=== PATIENT | female | born 2000 | race African-American/Black ===

== ENCOUNTER 2020-11-13 22:16 | Emergency (ER) | payer MEDICAID ==
[~2020-11-13] VITALS: Ht 167.6 cm; Wt 95.0 kg
[2020-11-13] MEDS ORDERED: KETOROLAC 30MG/ML VIAL IV STA (23:26)
[2020-11-13 23:45] LABS: CLARITY URINE CLOUDY (CLEAR); COLOR URINE RED (YELLOW); KETONES URINE NEGATIVE (NEGATIVE); LEUKOCYTE ESTERASE URINE 1+ (NEGATIVE); NITRITE URINE NEGATIVE (NEGATIVE); OCCULT BLOOD URINE 3+ (NEGATIVE); PROTEIN URINE 2+ (NEGATIVE); SPECIFIC GRAVITY URINE 1.008 (1.005-1.030); UROBILINOGEN URINE 0.2 E.U./dL (0.2-1.0)
[2020-11-13 23:47] LABS: BASOPHILS % 0.4 % (0.0-2.0); EOSINOPHILS % 1.1 % (0.0-5.0); HEMATOCRIT. 39.1 % (36.0-48.0); LYMPHOCYTES % 17.3 % (20.0-50.0); MEAN CORPUSCULAR HEMOGLOBIN 20.8 pg (28.0-32.0); MEAN CORPUSCULAR VOLUME 67.9 fL (81.0-99.0); MEAN PLATELET VOLUME 8.5 fl (7.4-10.4); MONOCYTES % 9.9 % (2.0-8.0); NEUTROPHILS % 71.3 % (40.0-76.0); PLATELET 297 x1000/uL (130-400); RED BLOOD CELL COUNT 5.75 mill/uL (4.2-5.4)
[2020-11-13 23:48] LABS: CHLORIDE 103 mEq/L (98-107)
[2020-11-13 23:52] LABS: PLATELET ESTIMATE NORMAL
[2020-11-13 23:53] LABS: ETHANOL BLOOD < 10 mg/dL
[2020-11-13 23:54] LABS: *AMPHETAMINES SCREEN URINE NEGATIVE (NEGATIVE); *BARBITURATES SCREEN URINE NEGATIVE (NEGATIVE); *BENZODIAZEPINES SCREEN URINE NEGATIVE (NEGATIVE); *COCAINE SCREEN URINE NEGATIVE (NEGATIVE)
[2020-11-13 23:55] LABS: CANNABINOID URINE SCREEN NEGATIVE (NEGATIVE); METHADONE URINE SCREEN NEGATIVE (NEGATIVE); OPIATES URINE SCREEN NEGATIVE (NEGATIVE); PHENCYCLIDINE URINE SCREEN NEGATIVE (NEGATIVE)
[2020-11-13 23:58] LABS: CREATINE KINASE 97 IU/L (26-192)
[2020-11-14] MEDS ORDERED: CEFTRIAXONE 1 G PREMIX 50 ML IV NR (00:15)
[2020-11-14] MEDS ORDERED: METOPROLOL TARTRATE 50MG TABLET PO NR (01:30)
[2020-11-14] MEDS ORDERED: METO-396 MT (02:11)
[2020-11-14 02:26] VITALS: BP 146/86
== END 2020-11-14 02:27 | disposition home or self-care (01) ==
LOC: ER 22:16
DX: I16.0 Hypertensive urgency (principal); R00.0 Tachycardia, unspecified; E66.01 Morbid (severe) obesity due to excess calories; Z68.33 Body mass index [BMI] 33.0-33.9, adult
CPT/HCPCS: 36415; 71045; 80053; 80305; 80320; 81003; 81025; 82550; 83605; 83880; 84145; 84484; 85025; 85379; 87040; 93970; 96374; 96375; 99285; J0696; J1885; Z7610; G0480

== ENCOUNTER 2020-12-19 20:52 | Emergency (ER) | payer MEDICAID ==
[~2020-12-19] VITALS: Ht 170.2 cm; Wt 109.0 kg
[~2020-12-19 20:52] MED LIST: METO-396 MT
[2020-12-19 21:28] VITALS: BP 137/87
[2020-12-19 22:15] LABS: CLARITY URINE CLOUDY (CLEAR); COLOR URINE YELLOW (YELLOW); KETONES URINE TRACE (NEGATIVE); LEUKOCYTE ESTERASE URINE 2+ (NEGATIVE); NITRITE URINE NEGATIVE (NEGATIVE); OCCULT BLOOD URINE NEGATIVE (NEGATIVE); PH URINE 6.5 (4.5-8.0); PROTEIN URINE NEGATIVE (NEGATIVE); SPECIFIC GRAVITY URINE 1.022 (1.005-1.030); UROBILINOGEN URINE 0.2 E.U./dL (0.2-1.0)
== END 2020-12-19 23:00 | disposition left against medical advice (07) ==
LOC: ER 20:52
DX: Z53.21 Procedure and treatment not carried out due to patient leaving prior to being seen by health care provider (principal)
CPT/HCPCS: 81003; 81025; 93005

== ENCOUNTER 2021-04-19 11:32 | Emergency (ER) | payer MEDICAID ==
[~2021-04-19] VITALS: Ht 167.6 cm; Wt 74.0 kg
[2021-04-19] MEDS ORDERED: LORAZEPAM 1MG TABLET PO ONE (12:15)
[2021-04-19 13:13] LABS: BASOPHILS % 0.4 % (0.0-2.0); EOSINOPHILS % 1.4 % (0.0-5.0); HEMATOCRIT. 35.9 % (36.0-48.0); HEMOGLOBIN. 11.2 g/dL (12.0-16.0); MEAN CORPUSCULAR HEMOGLOBIN 22.7 pg (28.0-32.0); MEAN CORPUSCULAR VOLUME 72.9 fL (81.0-99.0); MEAN PLATELET VOLUME 8.7 fl (7.4-10.4); MONOCYTES % 9.8 % (2.0-8.0); NEUTROPHILS % 62.4 % (40.0-76.0); PLATELET 222 x1000/uL (130-400); RED BLOOD CELL COUNT 4.93 mill/uL (4.2-5.4); RED CELL DISTRIBUTION WIDTH 17.2 % (11.6-14.6)
[2021-04-19 13:19] LABS: CHLORIDE 111 mEq/L (98-107)
[2021-04-19 13:35] LABS: HCG SCREEN NEGATIVE
[2021-04-19 15:17] VITALS: BP 128/82
== END 2021-04-19 15:41 | disposition home or self-care (01) ==
LOC: ER 11:32
DX: R06.00 Dyspnea, unspecified (principal); I49.9 Cardiac arrhythmia, unspecified
CPT/HCPCS: 36415; 71045; 80048; 84484; 84703; 85025; 85379; 93005; 99285

== ENCOUNTER 2022-04-18 15:40 | Emergency (ER) | payer MEDICAID ==
[~2022-04-18] VITALS: Ht 167.6 cm; Wt 107.0 kg
[2022-04-18] MEDS ORDERED: ACETAMINOPHEN 325MG TABLET PO ONE (20:15)
[2022-04-18] MEDS ORDERED: LORAZEPAM 0.5MG TABLET PO ONE (20:15)
[2022-04-18 21:49] VITALS: BP 119/86
== END 2022-04-18 22:09 | disposition home or self-care (01) ==
LOC: ER 15:40
DX: R07.89 Other chest pain (principal); F41.9 Anxiety disorder, unspecified
CPT/HCPCS: 71045; 93005; 99283